=== PATIENT | male | born 1975 | race Caucasian/White ===

== ENCOUNTER 2022-08-31 06:58 | Emergency (ER) | payer OTHER, SELFPAY ==
[2022-08-31 07:05] VITALS: BP 131/88; PULSE 81; RESP 16; TEMP 36.8; O2SAT 95
--- NOTE | 2022-08-31 08:15 | DI.RAD_ITS ---
Exam(s) XR CHEST 2V PA LATERAL EXAM: XR CHEST 2V PA LATERAL CLINICAL HISTORY: Cough, Wheezing TECHNIQUE: 2D digital imaging was performed of the chest. Two images were obtained. PA and lateral views were obtained. COMPARISON: No exams were available for comparison FINDINGS: MEDIASTINUM: Normal. HEART: Normal. PULMONARY VASCULATURE: Normal. LUNGS: Clear. PLEURAL SPACE: No pleural effusion or pneumothorax. BONE:Within normal limits for the patient's age. OTHER FINDINGS:Normal. IMPRESSION: No acute pulmonary findings. DATA REPOSITORY: RADIATION DOSE DELIVERED:
--- NOTE | 2022-08-31 08:19 | ED.GENADUL_ITS ---
Discharge Plan Disposition Patient Disposition: Home Condition: Stable Discharge Details Clinical Impression: Sialadenitis Primary Care Provider: None,None ED Provider: Leticia Low Home Meds and New Rx's Prescriptions: New amoxicillin-pot clavulanate 875-125 mg tablet 1 tab PO BID 10 Days Qty: 20 0RF Rx Instructions: Take 1 tablet twice daily for the next 10 days Discharge Instructions Instructions: Sialoadenitis (ED) Additional Instructions: Please take the antibiotic with yogurt or probiotic as directed. CT shows an infected submandibular salivary gland. Please suck on lemon heads or sour hard candies as instructed earlier. You may also apply warm compresses and massage. If you have any worsening of the swelling or change in your voice or drooling please return to the ER. Please follow-up with ear nose and throat in the next 1 to 2 weeks if any concerns. Continue to use the albuterol inhaler 2 puffs every 4-6 hours as needed for wheezing. Follow up with primary care provider in 3-5 days. Return to ED sooner if any wo rsening or concerns. Increase oral fluids. Please take Tylenol or Ibuprofen with food every 4-6 hours as needed for pain and swelling. Referrals: Jacob Doan MD [ [facility] STAFF PHYSICIAN] - 1 week Medical Decision Making 46-year-old male with a past medical history of PA in February who is a non-smoker presents with a chief complaint of cough over the last week, approximately 48 hours of a left neck lump which he noticed yesterday. He reports that his family had the flu prior to the onset of symptoms. He reports a fever and c hills on Saturday. He does have some expiratory and inspiratory wheezes scattered bilaterally on auscultation. He has approximately 4 cm x 3 cm immobile left neck mass. CBC, CMP rapid strep flu and COVID swab ordered chest x-ray CT to rule out abscess versus lymphadenopathy. Albuterol inhaler ordered. 0950: Spoke with Radiologist who reports left side sialedenitis, no abscess, please see report. Will give Augmentin for probable infected submandibular gland and instruct on home care. HPI General Mode of arrival: ambulatory . Date/Time Provider Initiated Documentation: 08/31/22 08:05 . Limitations to Documentation: no limitations . Information obtained by: patient, RN notes reviewed and old records reviewed . HPI Narrative: 46-year-old male with a past medical history of PA in February who is a non-smoker presents with a chief complaint of cough over the last week, approximately 48 hours of a left neck lump which he noticed yesterday. He reports that his famil y had the flu prior to the onset of symptoms. He reports a fever and chills on Saturday. He does have some expiratory and inspiratory wheezes scattered bilaterally on auscultation. He has approximately 4 cm x 3 cm immobile left neck mass. He denies any night sweats or weight loss. He is speaking in full sentences. No evidence of dental abscess uvula is midline exam. Related Data Home Medications Medication Instructions Recorded Confirmed amoxicillin 875 mg-potassium 1 tab PO BID sialodenitis 10 days 08/31/22 clavulanate 125 mg tablet #20 tabs Previous Rx's Medication Instructions Recorded amoxicillin 875 mg-potassium 1 tab PO BID sialodenitis 10 days 08/31/22 clavulanate 125 mg tablet #20 tabs Allergies Allergy/AdvReac Type Severity Reaction Status Date / Time No Known Allergies Allergy Unverified 08/31/22 07:08 General Stated Complaint: RespSymp SHAWNA: 3 Review of Systems All systems reviewed & are unremarkable except as noted in HPI and below ENT Ears, Nose, Mouth, and Throat: Reports as per HPI, Denies dysphagia, Reports neck mass and Reports sore throat Cardiovascular Cardiovascular: Denies chest pain Respiratory Respiratory: Reports chest congestion, Reports cough and Reports wheezing Gastrointestinal Gastrointestinal: Denies dysphagia Allergic/Immunologic Allergic/Immunologic: Reports wheezing PFSH All Active Problems (Updated 08/31/22 @ 09:56 by Leticia Low NP) Sialadenitis (Acute) Social History Smoking/Tobacco Use Status: Former Tobacco Use Quit Date: 08/30/22 Smoking risk assessment performed?: Yes Alcohol Intake: current Alcohol Intake frequency: a few times a week Alcohol type: beer Drug use: Occasionally Substance use type: marijuana Do you feel safe at home: Yes Do you feel safe in your relationship?: Yes Exam HENMT Head: normal to inspection Ears: external ears normal and TM's normal bilaterally General nose exam: external nose normal and nares normal Face and sinus: normal facial exam and face symmetric Mouth: lip normal, tongue normal, no drooling, malodorous breath, no muffled voice and no trismus Teeth and gingiva: dentition normal, gingiva normal and no caries Throat: posterior oropharynx normal and uvula midline Neck Neck: lymphadenopathy left anterior cervical soft, fixed and tender, no tracheal deviation and No submandibular swelling Neck images: 1. Proximately 3 cm x 4 cm palpable left cervical mass. Resp Effort & Inspection: able to speak in complete sentences, cough and not labored Auscultation: wheezes expiratory wheezes, inspiratory wheezes and scattered wheezes Cardio Palpation: normal PMI Rate: regular rate Rhythm: regular rhythm Heart Sounds: S1 normal and S2 normal Course Vital Signs Vital signs: Vital Signs Temperature 36.8 C 08/31/22 07:05 Pulse 81 08/31/22 07:05 Respiratory Rate 16 08/31/22 07:05 Blood Pressure 131/88 08/31/22 07:05 Pulse Oximetry 95 08/31/22 07:05 Temperature 36.8 C 08/31/22 07:05 Temperature Source Tympanic 08/31/22 07:05 Pulse 81 08/31/22 07:05 Respiratory Rate 16 08/31/22 07:05 Respiratory Effort Non-Labored 08/31/22 08:15 Blood Pressure 131/88 08/31/22 07:05 Blood Pressure Position Sitting 08/31/22 07:05 Pulse Oximetry 95 08/31/22 07:05 Oxygen Delivery Method Room Air 08/31/22 07:05 Oxygen Flow Rate 0 08/31/22 07:05 PAWSS Have you Been Recently Intoxicated or Drunk Within the Last 30 days?: No Have you Ever Experienced Previous Episodes of Alcohol Withdrawal?: No Have you ever Experienced Withdrawal Seizures?: No Have you ever Experienced Delirium Tremens(DT)s?: No Have you ever undergone Alcohol Rehabilitation Treatment (i.e, inpt ot outpatient treatment programs)?: No Have you ever Experienced Blackouts?: No Have you ever Combined Alcohol with other Downers within the last 90 days?: No Have you ever Combined Alcohol with any other Substance of Abuse during the last 90 days?: No Result: 0
[2022-08-31 08:52] LABS: Abs Immature Grans 0.03 10^3/uL (0.0-0.06); Absolute Basophil Count 0.03 10^3/uL (0.0-0.2); Absolute Eosinophil Count 0.12 10^3/uL (0.0-0.7); Absolute Lymphocyte Count 1.15 10^3/uL (1.2-3.4); Absolute Neutrophil Count 4.56 10^3/uL (1.2-6.7); Basophils % 0.5; Eosinophils % 1.8; HCT 41.8 % (40.0-50.0); HGB 14.8 g/dL (13.5-17.5); Immature Grans % 0.5; Lymphocytes % 17.7; MCH 29.1 pg (27.0-33.0); MCHC 35.4 % (32.0-36.0); MCV 82 fL (80-95); MPV 10.5 fL (8.0-11.0); Monocytes % 9.2; Neutrophils % 70.3; Platelet Count 176 10^3/uL (130-400); RBC 5.09 10^6/uL (4.36-5.78); RDW 11.6 % (11.8-14.1); RDW-SD 34.9 fL; WBC 6.49 10^3/uL (4.4-10.8)
[2022-08-31 09:08] LABS: ALT 35 U/L (16-63); AST 47 U/L (15-37); Albumin 4.4 g/dL (3.4-5.0); Alkaline Phosphatase 63 U/L (46-116); Anion Gap 6.7 mmol/L (3-11); BUN 11 mg/dL (7-18); Bilirubin, Total 3.3 mg/dL (0.2-1.0); CO2 29.3 mmol/L (21.0-32.0); Chloride 97 mmol/L (98-107); Glucose 110 mg/dL (74-106); Potassium 3.6 mmol/L (3.5-5.1); Sodium 133 mmol/L (136-145); Total Protein 7.9 g/dL (6.4-8.2)
--- NOTE | 2022-08-31 09:26 | DI.CT_ITS ---
Exam(s) CT NECK W EXAM: CT NECK W CLINICAL HISTORY: Left neck mass. TECHNIQUE: Imaging Protocol: Axial computed tomography images with coronal and sagittal reformatted images were created and reviewed. CONTRAST MATERIAL: Intravenous: Omnipaque 350 Contrast volume:100mL COMPARISON: No exams were available for comparison FINDINGS: Orbits and orbital soft tissues: Within normal limits. Visualized paranasal sinuses: There is moderate mucosal thickening involving all visualized paranasa l sinuses. No air-fluid levels are seen. The mastoid air cells are clear. Nasopharynx: Within normal limits. Oropharynx: There is mild enlargement of the left tonsillar tissue but no abscess is identified. Hypopharynx: Within normal limits. Larynx: Within normal limits. Retropharyngeal space: Within normal limits. Parotids/submandibular: There is enlargement of the left submandibular gland. There is some infiltr ation in the surrounding soft tissues with mild thickening of the adjacent sternocleidomastoid muscle s and the left strap muscles. No focal fluid collection is seen to suggest an abscess. There are mi ldly enlarged lymph nodes in the left neck which are likely reactive. The right submandibular gland and parotid glands are unremarkable. No suspicious calcifications are identified. Thyroid gland: Within normal limits. Lymphadenopathy: Mild reactive lymph nodes are seen in the left neck. Trachea: Within normal limits. Lung apices: Within normal limits. Bones: Within normal limits for the patient's age. Carotids/Jugular: Within normal limits. Soft tissues: Please see above under parotid/submandibular gland section. IMPRESSION: 1. Findings of mild left tonsillitis and left sialadenitis. Mild surrounding inflammation but no foc al fluid collection to suggest an abscess. 2. Findings were discussed with Leticia Low at 9:55 a.m. on 08/31/2022. RADIATION DOSE DELIVERED: 443.21mGy.cm Total DLP 443.21mGy.cm Total DLP DATA REPOSITORY: All CT scans at this facility are submitted to the National Radiology Data Registry (NRDR) Dose Index Registry (DIR) with the [employer] ([employer]). RADIATION OPTIMIZATION: All CT scans at this facility use at least one of these dose optimization te chniques: automated exposure control; mA and/or kV adjustment per patient size (includes targeted exa ms where dose is matched to clinical indication); or iterative reconstruction.
[2022-08-31] MEDS: Normal Saline - Diluent 50 ML VIAL IV (10:07)
[2022-08-31] MEDS: Omnipaque 350 MG/ML 500 ML BTL-Imaging package 100 ML IJ (10:08)
[2022-08-31] MEDS: Amoxicillin 875/Clav. 125 TAB PO (10:11)
[2022-08-31 10:13] VITALS: BP 123/79; PULSE 74; RESP 18; TEMP 36.8; O2SAT 97
== END 2022-08-31 10:17 | disposition home or self-care (01) ==
PROVIDERS: Emergency Provider Registered Nurse Emergency
DX: K11.20 Sialoadenitis, unspecified (principal); I25.2 Old myocardial infarction; Z20.822 Contact with and (suspected) exposure to COVID-19
CPT/HCPCS: 36415; 70491; 80053; 87880; 99285; 71046; 85025; 87081; 99284